=== PATIENT | male | born 1975 | race Caucasian/White ===

== ENCOUNTER 2018-09-04 10:38 | Emergency (ER) | payer SELFPAY ==
[2018-09-04 10:45] VITALS: BP 106/80
--- NOTE | 2018-09-04 11:23 | ED Physician Documentation ---
Lower Extremity Injury - HISTORIAN Historian: patient - HPI Stated Complaint: pt was walking and twisted left ankle Chief Complaint: Ankle Injury (Left) Additional Information: Patient is a 42-year-old male that presents to the ER with c/o left ankle injury. He was walking to work ([employer]) and he stepped on a grate and twisted the left ankle. He was able to walk to the hospital. He denies any pain, tingling, or numbness to the foot. Onset: minutes ([employer] ) Where: work (Walking to work) Severity: mild Context: twist Associated Symptoms:: popping sensation - ROS CONST: no problems CVS/RESP: none GI/: denies: nausea, vomiting MS/SKIN/LYMPH: denies: foot swelling, ankle swelling NEURO: denies: head injury - PAST HX Past History: none Immunizations: UTD Allergies/Adverse Reactions: Allergies Allergy/AdvReac Type Severity Reaction Status Date / Time No Known Allergies Allergy Verified 06/14/13 12:14 Home Medications: Ambulatory Orders Medication Instructions Recorded NK 06/14/13 - SOCIAL HX Smoking History: less than 1 pack/day Alcohol Use: none Drug Use: none - FAMILY HX Family History: none - VITAL SIGNS Vital Signs: Vital Signs Temp Pulse Resp BP Pulse Ox 96.6 F L 80 20 106/80 97 09/04/18 10:38 09/04/18 10:38 09/04/18 10:38 09/04/18 10:38 09/04/18 10:38 - REVIEWED ASSESSMENTS Nursing Assessment Reviewed: Yes Vitals Reviewed: Yes ED Results Lab/Radiology - Radiology Radiology Impressions: Name: IBIS MYERS : 77 Acc #: [id number] DOS: Sep 04, 2018 10:42:55 AM CDT Mod: DX Desc: ANKLE 3 VIEWS OR MORE 1 of 1 Examination: Plain film left ankle History: Turned ankle while walking to work Findings: 3 views of the left ankle demonstrates normal cortical margins. No fracture or dislocation. Talar dome is intact. No soft tissue swelling. No joint effusion. Impression: No acute osseous process. Electronically signed on Sep 04, 2018 11:03:01 AM CDT by: Noel Cordon - Orders Orders: ED Orders Category Date Time Status Lui Wrap Affected Extremity 1T Care 09/04/18 11:21 Active LEFT ANKLE [ANKLE 3 VIEWS OR MORE] [RAD] Stat Exams 09/04/18 Taken Lower Extremities Injury Phy - Physical Exam General Appearance: no acute distress, alert Ankle: left: normal inspection, normal range of motion, no evidence of injury, pain Foot: left foot: non-tender, normal inspection, normal range of motion, no evidence of injury DTR - Lower Extremities: ankle (L): 2+ Gait: normal Neuro/Vascular/Tendon: no vascular compromise, motor nml, sensation nml Head/ENT: nml inspection Neck/Back: nml inspection Resp/CVS: breath sounds nml, heart sounds nml, lungs clear Discharge Clincal Impression: Left ankle sprain Referrals: Primary Doctor,No [Primary Care Provider] - 2 Days Additional Instructions: Wear lui wrap for comfort and support Ice, Elevate, Rest Alternate Tylenol and Ibuprofen for comfort Follow up with PCP as needed Comments: Wear lui wrap for support Ice, elevate Follow up with PCP as needed Condition: Good Disposition: 01 HOME, SELF-CARE Decision to Admit: NO Decision Time: 11:30
--- NOTE | 2018-09-05 06:42 | Diagnostic Imaging Report ---
SHYLA CHILEL ED [facility] [id number] [facility].[address] [id number] Report Submission Date: Sep 04, 2018 11:03:01 AM CDT Patient Study Name: IBIS MYERS Date: Sep 04, 2018 10:42:55 AM CDT Modality Type: DX Gender: M Description: ANKLE 3 VIEWS OR MORE : 77 Institution: [facility] Physician: SHYAL CHILEL ED Examination: Plain film left ankle History: Turned ankle while walking to work Findings: 3 views of the left ankle demonstrates normal cortical margins. No fracture or dislocation. Talar dome is intact. No soft tissue swelling. No joint effusion. Impression: No acute osseous process. Electronically signed on Sep 04, 2018 11:03:01 AM CDT by: Noel LAMB
== END 2018-09-04 11:35 | disposition home or self-care (01) ==
LOC: ED 10:38
DX: S93.402A Sprain of unspecified ligament of left ankle, initial encounter (principal); W18.42XA Slipping, tripping and stumbling without falling due to stepping into hole or opening, initial encounter; Y93.01 Activity, walking, marching and hiking; Y92.89 Other specified places as the place of occurrence of the external cause
CPT/HCPCS: 73610; 99282; 99283